=== PATIENT | female | born 1960 | race American Indian/Alaskan Native ===

== ENCOUNTER 2016-07-28 12:20 | Outpatient (CLI) | payer BC ==
--- NOTE | 2016-07-28 13:07 | XRay Report ---
CHEST 2 VIEWS INDICATION: Cough. COMPARISON: 05/19/2008. FINDINGS: PA and lateral chest radiographs demonstrate normal cardiomediastinal silhouette. Stable lungs, including known left upper lung calcified granulomas. Aortic atherosclerotic calcifications. Mild spinal degenerative changes. CONCLUSION: No acute disease in the chest. Thank you for the opportunity to participate in this patient's care.
== END 2016-07-28 12:21 | disposition home or self-care (01) ==
LOC: SPVIMAG 12:20
DX: J84.10 Pulmonary fibrosis, unspecified (principal); I70.0 Atherosclerosis of aorta; M47.899 Other spondylosis, site unspecified
CPT/HCPCS: 71020